=== PATIENT | male | born 1945 | race Caucasian/White ===

== ENCOUNTER → 2017-11-23 | Outpatient (CLI) | payer MEDICARE | END | disposition home or self-care (01) | LOC: LAB SHORT 07:26 → PLD 07:26 | DX: C44.629 Squamous cell carcinoma of skin of left upper limb, including shoulder (principal) | CPT/HCPCS: 88305 ==

== ENCOUNTER 2019-06-03 22:11 | Emergency (ER) | payer MEDICARE ==
[~2019-06-03] VITALS: Ht 175.3 cm; Wt 77.1 kg
[2019-06-03] MEDS ORDERED: BUSP10 PO (22:51)
[2019-06-03] MEDS ORDERED: Aspirin EC81 MG PO (22:51)
[2019-06-03] MEDS ORDERED: Isosorbide Mono30 MG PO (22:52)
[2019-06-03] MEDS ORDERED: KRILL OIL 1,001 EAC1 PO (22:52)
[2019-06-03] MEDS ORDERED: GABA300T24 PO (22:52)
[2019-06-03] MEDS ORDERED: NITR.4SL SL (22:53)
[2019-06-03] MEDS ORDERED: LEVSOD50 PO (22:53)
[2019-06-03] MEDS ORDERED: Ropinirole HCl1 MG PO (22:54)
[2019-06-03] MEDS ORDERED: CLOP75 PO (22:54)
[2019-06-03] MEDS ORDERED: Pravachol40 MG PO (22:54)
[2019-06-03] MEDS ORDERED: TAMS.4ER PO (22:55)
[2019-06-03] MEDS ORDERED: SERT100 PO (22:55)
[2019-06-03] MEDS ORDERED: Ativan1 MG PO (23:03)
== END 2019-06-03 23:11 | disposition home or self-care (01) ==
LOC: ER 22:11
DX: F41.0 Panic disorder [episodic paroxysmal anxiety] (principal); Z79.82 Long term (current) use of aspirin; Z79.899 Other long term (current) drug therapy; I25.2 Old myocardial infarction; F32.9 Major depressive disorder, single episode, unspecified; E78.5 Hyperlipidemia, unspecified; Z87.891 Personal history of nicotine dependence
CPT/HCPCS: 99283-25

== ENCOUNTER 2019-06-08 21:48 | Observation (INO) | payer MEDICARE ==
[~2019-06-08] VITALS: Ht 177.8 cm; Wt 71.3 kg
[~2019-06-08 21:48] MED LIST: Aspirin EC81 MG PO; Ativan1 MG PO; BUSP10 PO; CLOP75 PO; GABA300T24 PO; Isosorbide Mono30 MG PO; KRILL OIL 1,001 EAC1 PO; LEVSOD50 PO; NITR.4SL SL; Pravachol40 MG PO; Ropinirole HCl1 MG PO; SERT100 PO; TAMS.4ER PO
[2019-06-08] MEDS ORDERED: DIAZ2 PO (22:26)
[2019-06-08 22:30] LABS: BASOPHILS ABSOLUTE AUTO 0.13 K/mm3 (0.00-0.23); BASOPHILS PERCENT AUTO 1 % (0-2); EOSINOPHILS ABSOLUTE AUTO 0.24 K/mm3 (0.00-0.68); EOSINOPHILS PERCENT AUTO 2 % (0-6); Hematocrit 45.3 % (37.0-53.0); Hemoglobin 15.2 g/dL (13.5-17.5); IMMATURE GRAN ABSOLUTE AUTO 0.09 K/mm3 (0.00-0.10); IMMATURE GRAN PERCENT AUTO 1 % (0-1); LYMPHOCYTES ABSOLUTE AUTO 1.93 K/mm3 (0.84-5.20); LYMPHOCYTES PERCENT AUTO 13 % (21-46); MONOCYTES ABSOLUTE AUTO 1.03 K/mm3 (0.16-1.47); MONOCYTES PERCENT AUTO 7 % (4-13); Mean Corpuscular HGB 30.8 pg (26.0-34.0); Mean Corpuscular HGB Conc 33.6 g/dL (31.5-36.5); Mean Corpuscular Volume 92 fL (80-100); Mean Platelet Volume 9.5 fL (9.1-12.4); NEUTROPHILS ABSOLUTE AUTO 11.48 K/mm3 (1.96-9.15); NEUTROPHILS PERCENT AUTO 77 % (41-73); Platelet Count 431 K/mm3 (150-400); RDW Coefficient Variation 12.9 % (11.7-14.2); RDW Standard Deviation 43.7 fL (35.1-46.3); Red Blood Cell Count 4.94 M/mm3 (4.30-5.90)
[2019-06-08 22:52] LABS: Alanine Aminotransfer (ALT/SGP 14 U/L (12-78); Albumin, Blood 3.3 g/dL (3.4-5.0); Albumin/Globulin Ratio 0.8 (0.8-1.8); Alk Phos 129 U/L (50-136); Anion Gap 8 mmol/L (6-16); Aspartate Aminotrans (AST/SGOT 23 U/L (12-37); Bilirubin, Total 0.4 mg/dL (0.1-1.0); Blood Urea Nitrogen 32 mg/dL (8-24); Bun/Creatinine Ratio 32.1 (12.0-20.0); CO2, Blood 25 mmol/L (21-32); Chloride, Blood 104 mmol/L (98-108); Globulin, Blood 4.2 g/dL (2.2-4.0); Glomerular Filtration Rate >60 (60-); Glucose, Blood 103 mg/dL (70-99); Potassium, Blood 4.6 mmol/L (3.5-5.5); Sodium, Blood 137 mmol/L (136-145); Total Protein, Blood 7.5 g/dL (6.4-8.2)
[2019-06-09 01:00] LABS: Automated BF RBC Count 0.025 M/mm3 (0-0); Automated BF WBC Count 0.916 K/mm3 (0-999); Body Fluid WBC Count 916 /mm3 (0-999); RBC Count, Body Fluid 25000 /mm3 (0-0)
[2019-06-09 01:16] LABS: Lactate Dehydrogenase, Body Fl 262 U/L; Protein, Body Fluid 5.1 g/dL
[2019-06-09 01:18] LABS: Appearance, Body Fluid Cloudy (Clear); Color, Body Fluid Red (None-Yellow); Total Cell Count, Body Fluid 100
--- NOTE | 2019-06-09 05:43 | NUR ---
SHIFT SUMMARY PT ADMITTED FOR RIGHT SIDED PLEURAL EFFUSION. PT HAD THORACENTESIS IN THE ER OF RIGHT LUNG AND 2 LITERS WAS DRAINED. PT STATES HE'S FEELING MUCH BETTER UPON ARRIVAL TO UNIT THAN HE WAS WHEN COMING INTO THE ED. HAS OXYGEN ON AT 2L/NC, DOES STILL HAVE SOME AUDIBLE WHEEZING NOTED. PT ALERT AND ORIENTED, ANSWERS QUESTIONS APPROPRIATLEY. USES URINAL AT BEDSIDE, URINE DARK YELLOW. WILL CONTINUE TO MONITOR FOR ANY CHANGES OR INCREASED SHORTNESS OF BREATH.
--- NOTE | 2019-06-09 09:35 | NUR ---
PT TO IMAGING FOR CT.
[2019-06-09] MEDS ORDERED: GABA300T24 PO (11:28)
[2019-06-09 11:39] LABS: Source, Urine Clean Catch
[2019-06-09 11:46] LABS: Bilirubin, Urine Neg (Neg); Blood, Urine Neg (Neg); Glucose Qualitative, Urine Neg (Neg); Ketones, Urine Neg (Neg); Leukocyte Esterase, Urine Neg (Neg); Nitrite, Urine Neg (Neg); Protein, Urine Neg (Neg); Specific Gravity, Urine 1.015 (1.003-1.022); Urobilinogen, Urine NORM (Normal)
[2019-06-09 11:50] LABS: Appearance, Urine Clear (Clear); Color, Urine Yellow (P-Yellow)
--- NOTE | 2019-06-09 12:15 | NUR ---
DR KIM IN TO SEE PT.
[2019-06-09 13:17] LABS: BASOPHILS ABSOLUTE AUTO 0.13 K/mm3 (0.00-0.23); BASOPHILS PERCENT AUTO 1 % (0-2); EOSINOPHILS ABSOLUTE AUTO 0.24 K/mm3 (0.00-0.68); EOSINOPHILS PERCENT AUTO 2 % (0-6); Hematocrit 42.9 % (37.0-53.0); Hemoglobin 14.5 g/dL (13.5-17.5); IMMATURE GRAN ABSOLUTE AUTO 0.07 K/mm3 (0.00-0.10); IMMATURE GRAN PERCENT AUTO 1 % (0-1); LYMPHOCYTES ABSOLUTE AUTO 1.33 K/mm3 (0.84-5.20); LYMPHOCYTES PERCENT AUTO 11 % (21-46); MONOCYTES ABSOLUTE AUTO 0.69 K/mm3 (0.16-1.47); MONOCYTES PERCENT AUTO 6 % (4-13); Mean Corpuscular HGB 30.3 pg (26.0-34.0); Mean Corpuscular HGB Conc 33.8 g/dL (31.5-36.5); Mean Corpuscular Volume 90 fL (80-100); Mean Platelet Volume 9.3 fL (9.1-12.4); NEUTROPHILS ABSOLUTE AUTO 10.18 K/mm3 (1.96-9.15); NEUTROPHILS PERCENT AUTO 81 % (41-73); Platelet Count 389 K/mm3 (150-400); RDW Coefficient Variation 12.8 % (11.7-14.2); RDW Standard Deviation 42.5 fL (35.1-46.3); Red Blood Cell Count 4.78 M/mm3 (4.30-5.90); White Blood Cell Count 12.64 K/mm3 (4.00-11.30)
[2019-06-09 13:32] LABS: Alanine Aminotransfer (ALT/SGP 14 U/L (12-78); Albumin, Blood 2.9 g/dL (3.4-5.0); Albumin/Globulin Ratio 0.8 (0.8-1.8); Alk Phos 117 U/L (50-136); Anion Gap 6 mmol/L (6-16); Aspartate Aminotrans (AST/SGOT 22 U/L (12-37); Bilirubin, Total 0.4 mg/dL (0.1-1.0); Blood Urea Nitrogen 27 mg/dL (8-24); Bun/Creatinine Ratio 28.4 (12.0-20.0); CO2, Blood 26 mmol/L (21-32); Calcium, Blood 8.3 mg/dL (8.5-10.1); Chloride, Blood 104 mmol/L (98-108); Creatinine, Blood 0.95 mg/dL (0.60-1.20); Globulin, Blood 3.7 g/dL (2.2-4.0); Glomerular Filtration Rate >60 (60-); Glucose, Blood 133 mg/dL (70-99); Potassium, Blood 4.3 mmol/L (3.5-5.5); Sodium, Blood 136 mmol/L (136-145); Total Protein, Blood 6.6 g/dL (6.4-8.2)
[2019-06-09 14:29] LABS: Adenovirus Not Detected (NOT DETECT); Bordetella pertussis Not Detected (NOT DETECT); Chlamydophila pneumoniae Not Detected (NOT DETECT); Coronavirus 229E Not Detected (NOT DETECT); Coronavirus HKU1 Not Detected (NOT DETECT); Coronavirus NL63 Not Detected (NOT DETECT); Coronavirus OC43 Not Detected (NOT DETECT); Human Metapneumovirus Not Detected (NOT DETECT); Human Rhinovirus/Enterovirus Not Detected (NOT DETECT); Influenza A Not Detected (NOT DETECT); Influenza A/2009-H1 Not Detected (NOT DETECT); Influenza A/H1 Not Detected (NOT DETECT); Influenza A/H3 Not Detected (NOT DETECT); Influenza B Not Detected (NOT DETECT); Mycoplasma pneumoniae Not Detected (NOT DETECT); Parainfluenza Virus 1 Not Detected (NOT DETECT); Parainfluenza Virus 2 Not Detected (NOT DETECT); Parainfluenza Virus 3 Not Detected (NOT DETECT); Parainfluenza Virus 4 Not Detected (NOT DETECT); Respiratory Syncytial Virus Not Detected (NOT DETECT)
--- NOTE | 2019-06-09 17:31 | NUR ---
SHIFT SUMMARY- PT A/OX4, PLEASANT AND COOPERATIVE. INDEP UP IN ROOM. LS CLEAR, DIMINISHED ON THE RIGHT. PT SATS 95% ON RA THIS AFTERNOON, PT USES 02 2L PRN. POSS THORACENTESIS TOMORROW. CT CHEST COMPLETED TODAY. MILD SOB WITH EXERTION. NO OTHER ACUTE CHANGES THIS SHIFT.
--- NOTE | 2019-06-10 04:24 | NUR ---
SHIFT SUMMARY- PT. RESTLESS T/O THE NIGHT, STATED UNABLE TO GET COMFORTABLE IN BED. NO APPARENT DISTRESS NOTED. VALIUM GIVEN PER EMAR, TOLERATED WELL. PT. GETS SOB WITH EXERTION. ON 02 PRN. LUNG SOUNDS CLEAR, BUT DIMINISHED ON RT SIDE. SCHEDULED FOR AM THORACENTESIS. NO OTHER ACUTE CHANGES OVERNIGHT. CALL LIGHT WITHIN REACH AND SIDE RAILS UP X2. WILL CONT TO MONITOR.
[2019-06-10 07:18] LABS: Mean Platelet Volume 9.3 fL (9.1-12.4); Platelet Count 333 K/mm3 (150-400)
[2019-06-10 07:33] LABS: International Normalized Ratio 1.07; Prothrombin Time Results 11.3 Sec (9.7-11.5)
[2019-06-10 09:05] LABS: BASOPHILS ABSOLUTE AUTO 0.14 K/mm3 (0.00-0.23); BASOPHILS PERCENT AUTO 1 % (0-2); EOSINOPHILS ABSOLUTE AUTO 0.27 K/mm3 (0.00-0.68); EOSINOPHILS PERCENT AUTO 2 % (0-6); Hematocrit 42.3 % (37.0-53.0); Hemoglobin 14.3 g/dL (13.5-17.5); IMMATURE GRAN ABSOLUTE AUTO 0.07 K/mm3 (0.00-0.10); IMMATURE GRAN PERCENT AUTO 1 % (0-1); LYMPHOCYTES ABSOLUTE AUTO 1.25 K/mm3 (0.84-5.20); LYMPHOCYTES PERCENT AUTO 10 % (21-46); MONOCYTES ABSOLUTE AUTO 0.94 K/mm3 (0.16-1.47); MONOCYTES PERCENT AUTO 7 % (4-13); Mean Corpuscular HGB 30.4 pg (26.0-34.0); Mean Corpuscular HGB Conc 33.8 g/dL (31.5-36.5); Mean Corpuscular Volume 90 fL (80-100); Mean Platelet Volume 9.2 fL (9.1-12.4); NEUTROPHILS ABSOLUTE AUTO 10.38 K/mm3 (1.96-9.15); NEUTROPHILS PERCENT AUTO 80 % (41-73); Platelet Count 361 K/mm3 (150-400); RDW Coefficient Variation 12.7 % (11.7-14.2); RDW Standard Deviation 41.9 fL (35.1-46.3); Red Blood Cell Count 4.71 M/mm3 (4.30-5.90); White Blood Cell Count 13.05 K/mm3 (4.00-11.30)
[2019-06-10 09:34] LABS: Alanine Aminotransfer (ALT/SGP 14 U/L (12-78); Albumin, Blood 2.7 g/dL (3.4-5.0); Albumin/Globulin Ratio 0.7 (0.8-1.8); Alk Phos 110 U/L (50-136); Anion Gap 8 mmol/L (6-16); Aspartate Aminotrans (AST/SGOT 20 U/L (12-37); Bilirubin, Total 0.6 mg/dL (0.1-1.0); Blood Urea Nitrogen 20 mg/dL (8-24); Bun/Creatinine Ratio 20.1 (12.0-20.0); CO2, Blood 25 mmol/L (21-32); Calcium, Blood 8.5 mg/dL (8.5-10.1); Chloride, Blood 103 mmol/L (98-108); Globulin, Blood 3.7 g/dL (2.2-4.0); Glomerular Filtration Rate >60 (60-); Glucose, Blood 92 mg/dL (70-99); Potassium, Blood 4.7 mmol/L (3.5-5.5); Sodium, Blood 136 mmol/L (136-145); Total Protein, Blood 6.4 g/dL (6.4-8.2)
--- NOTE | 2019-06-10 10:20 | NUR ---
SPOKE WITH BRAND MGR, SHE REPORTED THAT RADIOLOGIST WILL NOT PERFORM THOROCENTSIS FOR 5 DAYS POST ANTICOAGULATION BEING HELD. ANTICAOGULANTS HELD. TODAY.
--- NOTE | 2019-06-10 10:34 | NUR ---
SPOKE WITH DR. WOOD IN REGARDS TO RADIOLOGY NOT WANTING TO PERFORM THOROCENTESIS, HE REQUESTED THAT DR. KIM BE NOTIFIED WHEN HE ROUNDS TODAY.
[2019-06-10 18:56] LABS: Automated BF RBC Count 0.084 M/mm3 (0-0); Automated BF WBC Count 1.158 K/mm3 (0-999); Body Fluid WBC Count 1158 /mm3 (0-999); RBC Count, Body Fluid 84000 /mm3 (0-0)
[2019-06-10 19:08] LABS: Albumin, Body Fluid 2.5 g/dL; Glucose, Body Fluid 69 mg/dL; Lactate Dehydrogenase, Body Fl 355 U/L; Protein, Body Fluid 4.6 g/dL; Triglycerides, Body Fluid 69 mg/dL
[2019-06-10 19:27] LABS: Appearance, Body Fluid Bloody (Clear); Color, Body Fluid Red (None-Yellow); Total Cell Count, Body Fluid 100
--- NOTE | 2019-06-10 19:27 | NUR ---
SHIFT SUMMARY. A&OX4, INDEPENDENT IN ROOM, AT BEDSIDE MOST OF SHIFT. PT DENIES SOB, N/V, AND PAIN. PT DENIES SOB WITH EXERTION, ON RA, DIM LUNG SOUNDS IN R BASE. DR. KIM PERFOMED BEDSIDE THOROCENTESIS THIS EVENING AND DRAINED APPROXIMATELY 1700ML OF RED/ADRIAN SLIGHTLY TRANSLUCENT FLUID, FLUID HAND DELIVERED TO LAB BY THIS RN. PT TOLERATED WELL, NO COMPLICATIONS, SMALL AMOUNT OF DRAINAGE ON BANDAGE TO R BACK FROM NEEDLE INSERTION. PT HAS POOR APPETITE, HE HAS NOT EATEN ALL SHIFT, SUPPLEMENTS OFFERED ALTHOUGH REFUSED.
--- NOTE | 2019-06-11 04:42 | NUR ---
SHIFT SUMMARY- PT. INDEP IN ROOM. CT OF CHEST PERFORMED LAST NIGHT. PT. HAS POOR APPETITE STATED HAD NOT EATEN ALL DAY. OFFERED FOOD BUT DECLINED. SCHEDULED MEDS GIVEN PER EMAR, TOLERATED WELL. RESTED ON/OFF T/O THE SHIFT. DENIED ANY PAIN OR DISCOMFORT. CALL LIGHT WITHIN REACH AND SIDE RAILS UP X2.
[2019-06-11 09:21] LABS: BASOPHILS PERCENT AUTO 1 % (0-2); EOSINOPHILS ABSOLUTE AUTO 0.15 K/mm3 (0.00-0.68); EOSINOPHILS PERCENT AUTO 1 % (0-6); Hematocrit 44.5 % (37.0-53.0); Hemoglobin 14.9 g/dL (13.5-17.5); IMMATURE GRAN ABSOLUTE AUTO 0.08 K/mm3 (0.00-0.10); IMMATURE GRAN PERCENT AUTO 1 % (0-1); LYMPHOCYTES ABSOLUTE AUTO 1.19 K/mm3 (0.84-5.20); LYMPHOCYTES PERCENT AUTO 9 % (21-46); MONOCYTES ABSOLUTE AUTO 0.93 K/mm3 (0.16-1.47); MONOCYTES PERCENT AUTO 7 % (4-13); Mean Corpuscular HGB 30.6 pg (26.0-34.0); Mean Corpuscular HGB Conc 33.5 g/dL (31.5-36.5); Mean Corpuscular Volume 91 fL (80-100); Mean Platelet Volume 9.4 fL (9.1-12.4); NEUTROPHILS ABSOLUTE AUTO 11.18 K/mm3 (1.96-9.15); NEUTROPHILS PERCENT AUTO 82 % (41-73); Platelet Count 395 K/mm3 (150-400); RDW Coefficient Variation 12.6 % (11.7-14.2); RDW Standard Deviation 42.4 fL (35.1-46.3); Red Blood Cell Count 4.87 M/mm3 (4.30-5.90); White Blood Cell Count 13.63 K/mm3 (4.00-11.30)
[2019-06-11 09:50] LABS: Alanine Aminotransfer (ALT/SGP 17 U/L (12-78); Albumin, Blood 2.8 g/dL (3.4-5.0); Albumin/Globulin Ratio 0.7 (0.8-1.8); Alk Phos 109 U/L (50-136); Anion Gap 9 mmol/L (6-16); Aspartate Aminotrans (AST/SGOT 22 U/L (12-37); Bilirubin, Total 0.7 mg/dL (0.1-1.0); Blood Urea Nitrogen 23 mg/dL (8-24); Bun/Creatinine Ratio 25.1 (12.0-20.0); CO2, Blood 24 mmol/L (21-32); Calcium, Blood 8.9 mg/dL (8.5-10.1); Chloride, Blood 102 mmol/L (98-108); Creatinine, Blood 0.92 mg/dL (0.60-1.20); Globulin, Blood 3.9 g/dL (2.2-4.0); Glomerular Filtration Rate >60 (60-); Glucose, Blood 97 mg/dL (70-99); Potassium, Blood 4.4 mmol/L (3.5-5.5); Sodium, Blood 135 mmol/L (136-145); Total Protein, Blood 6.7 g/dL (6.4-8.2)
--- NOTE | 2019-06-11 10:02 | NUR ---
PT NAUSEUS THIS AM, DR. WOOD NOTIFIED, RECIEVED ORDERS FOR ZOFRAN 4MG IV Q6P. MEDICATION ADMINISTERED, PT REPORTS SOME RELIEF ALTHOUGH DOES NOT WANT TO EAT, DRINK, OR TAKE MEDICATION THIS AM. PT HAD VERY POOR MEAL AND FLUID INTAKE YESTERDAY. CLARIFIER CONSULT PLACED.
--- NOTE | 2019-06-11 11:55 | NUR ---
PT STILL WITH INTERMITTENT NAUSEA WITHOUT EMESIS, DR. WOOD NOTIFIED, RECIEVED ORDER TO CALL IN ZOFRAN ODT 4MG Q6P DISP 30 ONE REFILL, ORDER CALLED IN TO [facility].
--- NOTE | 2019-06-11 12:03 | NUR ---
PT REQUESTS TO TAKE DAILY MEDICATIONS AT HOME AFTER DISCHARGE.
[2019-06-11] MEDS ORDERED: ONDA4ODT MM (13:11)
--- NOTE | 2019-06-11 14:06 | NUR ---
1350 PT DISCHARGED HOME VIA PERSONAL VEHICLE ACCOMPANIED AND DRIVEN BY . PT ESCORTED TO FACILITY ENTRANCE VIA W/C BY THIS RN. IV REMOVED. D/C PAPERWORK REVIEWED WITH PT AND COPY PROVIDED. FOLLOW UP APPOINTMENT MADE WITH PULMONOLOGY, PT REQUESTS TO MAKE APPOINTMENT WITH PCP.
[2019-06-21 11:19] LABS: Performing Lab SYMBIODX; Result SEE PATHOTH RESULTS; Test Name TISSUE BLOCK
== END 2019-06-11 13:55 | disposition home or self-care (01) ==
LOC: ER 21:48 → MEDS 21:49
PROVIDERS: Emergency Medicine; Internal Medicine; Internal Medicine Critical Care Medicine; Physician Assistant; ADMIT Internal Medicine
DX: C34.91 Malignant neoplasm of unspecified part of right bronchus or lung (principal); J91.0 Malignant pleural effusion; J44.9 Chronic obstructive pulmonary disease, unspecified; I10 Essential (primary) hypertension; I25.10 Atherosclerotic heart disease of native coronary artery without angina pectoris; I73.9 Peripheral vascular disease, unspecified; E03.9 Hypothyroidism, unspecified; E78.00 Pure hypercholesterolemia, unspecified; F41.9 Anxiety disorder, unspecified; G25.81 Restless legs syndrome; R19.7 Diarrhea, unspecified; Z86.73 Personal history of transient ischemic attack (TIA), and cerebral infarction without residual deficits; Z95.5 Presence of coronary angioplasty implant and graft; Z98.890 Other specified postprocedural states; Z87.891 Personal history of nicotine dependence; Z79.82 Long term (current) use of aspirin; Z79.899 Other long term (current) drug therapy; Z51.81 Encounter for therapeutic drug level monitoring
CPT/HCPCS: 0099U; 36415; 71045; 71046; 71250; 71260; 80053; 81003; 81235; 81276; 82042; 82945; 83615; 84145; 84157; 84443; 84478; 84484; 85025; 85049; 85610; 85730; 87015; 87070; 87102; 87116; 87205; 87206; 88108; 88305; 88341; 88342; 88360; 88374; 88381; 89051; 93005; 93010; 94640; 96361; 96372; 96374; 96375; 99285-25; A9270-GY; G0378; J1650; J2060; J2405; J3360; J7030; Q9967

== ENCOUNTER → 2019-07-18 | Outpatient (CLI) | payer MEDICARE ==
[~2019-07-18] MED LIST changes: +DIAZ2 PO; +ONDA4ODT MM
== END | disposition home or self-care (01) ==
LOC: PLD 15:03 → LAB SHORT 15:03
DX: L72.0 Epidermal cyst (principal)
CPT/HCPCS: 88304